=== PATIENT | male | born 1975 | race Caucasian/White ===

== ENCOUNTER 2017-06-15 12:25 | Inpatient (IN) | payer MEDICARE, MEDICAID ==
[~2017-06-15] VITALS: Ht 188 cm; Wt 190.2 kg
[~2017-06-15 12:25] MED LIST: ASPI-515 PO; FURO-93 PO; LISI-170 PO; METO25TA35 PO; OMEP-110 PO; OXYC-302 PO; OXYC-307 PO; POTA99TA24 PO; RIVA20TA PO
[2017-06-15 13:11] LABS: HEMOGLOBIN 13.5 g/dL (13.7-18.0); WHITE BLOOD COUNT 10.4 x10^3/uL (3.4-10)
[2017-06-15 13:25] LABS: ASPARTATE AMINO TRANSFERASE 24 U/L (15-37); BLOOD UREA NITROGEN 9 mg/dL (7-18)
[2017-06-15 13:27] LABS: ACETAMINOPHEN < 2 mcg/mL (10-30)
[2017-06-15] MEDS ORDERED: OXYcodone IR 5MG TABLET PO ONE (13:30)
[2017-06-15] MEDS ORDERED: ONDANSETRON ODT 8 MG PO ONE (13:30)
[2017-06-15] MEDS ORDERED: VENL150C PO (13:49)
[2017-06-15] MEDS ORDERED: WARF10TA PO (13:49)
[2017-06-15] MEDS ORDERED: ZOLP10TA PO (13:49)
[2017-06-15] MEDS ORDERED: ENOX100S5 SQ (13:49)
[2017-06-15] MEDS ORDERED: METH10TA4 PO (13:49)
[2017-06-15] MEDS ORDERED: RISP3TAB24 PO (13:49)
[2017-06-15] MEDS ORDERED: ONDANSETRON ODT 8 MG ONE (13:53)
[2017-06-15] MEDS ORDERED: OXYcodone IR 5MG TABLET ONE (13:53)
[2017-06-15 14:42] LABS: DAU SCREEN DISCLAIMER
[2017-06-15] MEDS ORDERED: KETOROLAC 30 MG/1 ML ONE (16:00)
[2017-06-15] MEDS ORDERED: KETOROLAC 30 MG/1 ML IM ONE (16:00)
[2017-06-15 17:52] VITALS: BP 128/100
[2017-06-15] MEDS: ENOXAPARIN 150 MG/ML SQ SCH (18:00)
[2017-06-15] MEDS ORDERED: ENOXAPARIN 40 MG/0.4 ML SQ SCH (18:00)
[2017-06-15] MEDS: ENOXAPARIN 40 MG/0.4 ML SQ SCH (18:29)
[2017-06-15] MEDS: OXYcodone/APAP 10/325MG TABLET PO PRN (18:29)
[2017-06-15] MEDS ORDERED: WARFARIN 10 MG TABLET PO-COUM ONE (18:30)
[2017-06-15] MEDS ORDERED: WARFARIN 3 MG TABLET PO-COUM ONE (18:30)
[2017-06-15] MEDS ORDERED: ZOLPIDEM 5MG TABLET ONE (20:03)
[2017-06-15] MEDS: ZOLPIDEM 10MG TABLET PO PRN (20:08)
[2017-06-15] MEDS: METOPROLOL TARTRATE 25 MG TABLET PO SCH (20:09)
[2017-06-15] MEDS ORDERED: METHYLPHENIDATE 10 MG TABLET PO SCH (21:00)
[2017-06-16] MEDS: OXYcodone/APAP 10/325MG TABLET PO PRN ×5 (01:01→22:16)
[2017-06-16 06:10] LABS: HEMATOCRIT 39.4 % (39.2-51.8); HEMOGLOBIN 12.9 g/dL (13.7-18.0); WHITE BLOOD COUNT 8.6 x10^3/uL (3.4-10)
[2017-06-16 06:16] LABS: ASPARTATE AMINO TRANSFERASE 18 U/L (15-37); BLOOD UREA NITROGEN 16 mg/dL (7-18)
[2017-06-16] MEDS: ENOXAPARIN 40 MG/0.4 ML SQ SCH ×2 (06:32→18:16)
[2017-06-16] MEDS: ENOXAPARIN 150 MG/ML SQ SCH ×2 (06:32→18:16)
[2017-06-16 07:20] VITALS: BP 121/86
[2017-06-16] MEDS: VENLAFAXINE 75 MG CAP ER PO SCH (08:24)
[2017-06-16] MEDS: METHYLPHENIDATE 10 MG TABLET PO SCH ×2 (08:26→11:54)
[2017-06-16] MEDS: LISINOPRIL 20 MG TABLET PO SCH (08:27)
[2017-06-16] MEDS: METOPROLOL TARTRATE 25 MG TABLET PO SCH ×2 (08:27→20:33)
[2017-06-16] MEDS: ASPIRIN 81 MG TABLET EC PO SCH (08:27)
[2017-06-16] MEDS: NICOTINE 14MG/24 HR PATCH.TD24 TD SCH (08:28)
[2017-06-16] MEDS: OMEPRAZOLE 20 MG CAPSULE.DR PO SCH (08:28)
[2017-06-16 13:56] VITALS: BP 94/65
[2017-06-16] MEDS: morphine SULFATE 10 MG/ML, 1ML IVPush PRN ×2 (14:57→20:33)
[2017-06-16] MEDS ORDERED: WARFARIN 5 MG TABLET PO-COUM ONE (18:00)
[2017-06-16 18:38] VITALS: BP 101/63
[2017-06-16] MEDS: ZOLPIDEM 10MG TABLET PO PRN (20:42)
[2017-06-16] MEDS ORDERED: OMNIPAQUE 350 MG/ML, 100ML BOTTLE ONE (21:09)
[2017-06-17] MEDS: morphine SULFATE 10 MG/ML, 1ML IVPush PRN ×4 (00:20→17:05)
[2017-06-17 00:50] VITALS: BP 96/62
[2017-06-17 05:15] LABS: HEMATOCRIT 36.2 % (39.2-51.8); HEMOGLOBIN 11.9 g/dL (13.7-18.0); WHITE BLOOD COUNT 7.4 x10^3/uL (3.4-10)
[2017-06-17] MEDS: ENOXAPARIN 40 MG/0.4 ML SQ SCH ×2 (05:30→17:04)
[2017-06-17] MEDS: ENOXAPARIN 150 MG/ML SQ SCH ×2 (05:30→17:04)
[2017-06-17 05:31] LABS: BLOOD UREA NITROGEN 15 mg/dL (7-18)
[2017-06-17 06:47] VITALS: BP 124/88
[2017-06-17] MEDS: OXYcodone/APAP 10/325MG TABLET PO PRN ×3 (08:11→18:21)
[2017-06-17] MEDS: NICOTINE 14MG/24 HR PATCH.TD24 TD SCH (08:11)
[2017-06-17] MEDS: OMEPRAZOLE 20 MG CAPSULE.DR PO SCH (08:11)
[2017-06-17] MEDS: METOPROLOL TARTRATE 25 MG TABLET PO SCH ×2 (08:11→20:06)
[2017-06-17] MEDS: ASPIRIN 81 MG TABLET EC PO SCH (08:12)
[2017-06-17] MEDS: VENLAFAXINE 75 MG CAP ER PO SCH (08:12)
[2017-06-17] MEDS: LISINOPRIL 20 MG TABLET PO SCH (08:14)
[2017-06-17] MEDS: METHYLPHENIDATE 10 MG TABLET PO SCH ×2 (08:20→12:21)
[2017-06-17 12:51] VITALS: BP 121/82
[2017-06-17 17:34] VITALS: BP 151/97
[2017-06-17] MEDS ORDERED: WARFARIN 7.5 MG TABLET PO-COUM ONE (18:00)
[2017-06-17] MEDS ORDERED: ZOLPIDEM 5MG TABLET ONE (19:39)
[2017-06-17 20:04] VITALS: BP 114/83
[2017-06-17] MEDS: ZOLPIDEM 10MG TABLET PO PRN (20:06)
[2017-06-18] MEDS: OXYcodone/APAP 10/325MG TABLET PO PRN ×4 (00:03→17:23)
[2017-06-18 04:56] VITALS: BP 110/69
[2017-06-18] MEDS: ENOXAPARIN 150 MG/ML SQ SCH ×2 (06:10→18:23)
[2017-06-18] MEDS: ENOXAPARIN 40 MG/0.4 ML SQ SCH ×2 (06:10→18:24)
[2017-06-18 08:17] VITALS: BP 136/86
[2017-06-18] MEDS: VENLAFAXINE 75 MG CAP ER PO SCH (08:28)
[2017-06-18] MEDS: ASPIRIN 81 MG TABLET EC PO SCH (08:28)
[2017-06-18] MEDS: LISINOPRIL 20 MG TABLET PO SCH (08:29)
[2017-06-18] MEDS: OMEPRAZOLE 20 MG CAPSULE.DR PO SCH (08:29)
[2017-06-18] MEDS: METOPROLOL TARTRATE 25 MG TABLET PO SCH ×2 (08:30→20:14)
[2017-06-18] MEDS: NICOTINE 14MG/24 HR PATCH.TD24 TD SCH (08:30)
[2017-06-18] MEDS: METHYLPHENIDATE 10 MG TABLET PO SCH ×2 (09:11→12:00)
[2017-06-18] MEDS ORDERED: hydrOXyzine 50MG TABLET PO PRN (11:30)
[2017-06-18] MEDS ORDERED: WARFARIN 10 MG TABLET PO-COUM ONE (18:00)
[2017-06-18 19:58] VITALS: BP 137/83
[2017-06-18] MEDS ORDERED: ZOLPIDEM 5MG TABLET ONE (20:11)
[2017-06-18] MEDS: ZOLPIDEM 10MG TABLET PO PRN (20:15)
[2017-06-19] MEDS: OXYcodone/APAP 10/325MG TABLET PO PRN ×4 (05:46→21:04)
[2017-06-19] MEDS: ENOXAPARIN 40 MG/0.4 ML SQ SCH ×2 (06:21→18:19)
[2017-06-19] MEDS: ENOXAPARIN 150 MG/ML SQ SCH ×2 (06:21→18:20)
[2017-06-19] MEDS: METHYLPHENIDATE 10 MG TABLET PO SCH ×2 (08:00→12:00)
[2017-06-19 08:19] VITALS: BP 122/94
[2017-06-19] MEDS: NICOTINE 14MG/24 HR PATCH.TD24 TD SCH (08:51)
[2017-06-19] MEDS: ASPIRIN 81 MG TABLET EC PO SCH (08:52)
[2017-06-19] MEDS: METOPROLOL TARTRATE 25 MG TABLET PO SCH ×2 (08:52→20:57)
[2017-06-19] MEDS: VENLAFAXINE 75 MG CAP ER PO SCH (08:52)
[2017-06-19] MEDS: OMEPRAZOLE 20 MG CAPSULE.DR PO SCH (08:52)
[2017-06-19] MEDS: LISINOPRIL 20 MG TABLET PO SCH (08:53)
[2017-06-19] MEDS ORDERED: WARFARIN 10 MG TABLET PO-COUM ONE (18:00)
[2017-06-19 19:46] VITALS: BP 162/101
[2017-06-19] MEDS ORDERED: ZOLPIDEM 5MG TABLET ONE (20:55)
[2017-06-19] MEDS: ZOLPIDEM 10MG TABLET PO PRN (21:03)
[2017-06-20] MEDS: ENOXAPARIN 150 MG/ML SQ SCH ×3 (05:53→06:04)
[2017-06-20] MEDS: ENOXAPARIN 40 MG/0.4 ML SQ SCH ×2 (05:53→06:05)
[2017-06-20] MEDS: OMEPRAZOLE 20 MG CAPSULE.DR PO SCH (07:55)
[2017-06-20] MEDS: LISINOPRIL 20 MG TABLET PO SCH (07:55)
[2017-06-20] MEDS: METHYLPHENIDATE 10 MG TABLET PO SCH ×2 (07:55→13:18)
[2017-06-20] MEDS: VENLAFAXINE 75 MG CAP ER PO SCH (07:56)
[2017-06-20] MEDS: ASPIRIN 81 MG TABLET EC PO SCH (07:56)
[2017-06-20] MEDS: NICOTINE 14MG/24 HR PATCH.TD24 TD SCH (07:56)
[2017-06-20] MEDS: METOPROLOL TARTRATE 25 MG TABLET PO SCH (07:56)
[2017-06-20 08:00] VITALS: BP 146/79
[2017-06-20] MEDS: OXYcodone/APAP 10/325MG TABLET PO PRN (08:58)
[2017-06-20] MEDS ORDERED: WARFARIN 10 MG TABLET PO-COUM SCH (18:00)
[2017-06-21] MEDS ORDERED: ENOXAPARIN 40 MG/0.4 ML SQ SCH (08:30)
== END 2017-06-20 13:21 | disposition home health service (06) | DRG 885 ==
LOC: ED 13:03 → INTOOBSV 15:45 → EDIP 15:45 → 3E 17:43 → 4NOR 06-16 12:16 → OBSVTOIN 06-16 14:25 → 3E 06-17 17:28
PROVIDERS: ADMIT Hospitalist; ATTEND Hospitalist
DX: F31.9 Bipolar disorder, unspecified (principal); R45.851 Suicidal ideations; I11.0 Hypertensive heart disease with heart failure; E66.01 Morbid (severe) obesity due to excess calories; E11.9 Type 2 diabetes mellitus without complications; I50.42 Chronic combined systolic (congestive) and diastolic (congestive) heart failure; D64.9 Anemia, unspecified; E78.5 Hyperlipidemia, unspecified; Z68.43 Body mass index [BMI] 50.0-59.9, adult; Z95.1 Presence of aortocoronary bypass graft; R10.9 Unspecified abdominal pain; F43.10 Post-traumatic stress disorder, unspecified; G89.29 Other chronic pain; I25.10 Atherosclerotic heart disease of native coronary artery without angina pectoris; F17.210 Nicotine dependence, cigarettes, uncomplicated; R79.1 Abnormal coagulation profile; M54.9 Dorsalgia, unspecified; I25.5 Ischemic cardiomyopathy; J44.9 Chronic obstructive pulmonary disease, unspecified; K21.9 Gastro-esophageal reflux disease without esophagitis; Z83.3 Family history of diabetes mellitus; Z82.49 Family history of ischemic heart disease and other diseases of the circulatory system; Z87.11 Personal history of peptic ulcer disease; Z91.19 Patient's noncompliance with other medical treatment and regimen; Z86.711 Personal history of pulmonary embolism; I25.2 Old myocardial infarction; Z95.5 Presence of coronary angioplasty implant and graft; Z95.810 Presence of automatic (implantable) cardiac defibrillator
CPT/HCPCS: 36415; 74177; 80048; 80053; 80307; 80329; 81003; 82040; 83735; 85025; 85379; 85610; 85730; 93970; G0378; J1650; J1885; Q0162; Q9967; G0479; G0480; J2270

== ENCOUNTER 2017-06-26 11:49 | Observation (INO) | payer MEDICARE, MEDICAID ==
[~2017-06-26] VITALS: Ht 188 cm; Wt 190.0 kg
[~2017-06-26 11:49] MED LIST changes: +ENOX100S5 SQ; +METH10TA4 PO; +RISP3TAB24 PO; +VENL150C PO; +WARF10TA PO; +ZOLP10TA PO
[2017-06-26] MEDS ORDERED: ASPIRIN 81 MG TABLET CHEW PO ONE (13:00)
[2017-06-26 13:15] LABS: BASOPHILS # (AUTO) 0.04 x10^3/uL (0-0.1); BASOPHILS % (AUTO) 0 % (0-1); EOSINOPHILS # (AUTO) 0.06 x10^3/uL (0-0.4); EOSINOPHILS % (AUTO) 1 % (1-7); LYMPHOCYTES % (AUTO) 15 % (22-44); MD NO; MEAN CORPUSCULAR HGB CONC 33.3 g/dL (33.2-36.2); MEAN CORPUSCULAR VOLUME 87.2 fL (81-97); MEAN PLATELET VOLUME 8.3 fL (7.4-10.4); MONOCYTES % (AUTO) 8 % (2-9); NEUTROPHILS % (AUTO) 76 % (42-75); PLATELET COUNT 249 x10^3/uL (130-400); RED BLOOD COUNT 4.66 x10^6/uL (4.38-5.82); RED CELL DISTRIBUTION WIDTH 16.1 % (9.4-14.8)
[2017-06-26] MEDS ORDERED: ONDANSETRON 2MG/ML, 2ML ONE (13:22)
[2017-06-26] MEDS ORDERED: MORPHINE SULFATE 4 MG/ML, 1ML ONE (13:22)
[2017-06-26 13:26] LABS: ALANINE AMINOTRANSFERASE 30 U/L (12-78); ALBUMIN 3.2 g/dL (3.4-5.0); ANION GAP 7 mmol/L (5-15); CALCIUM 8.3 mg/dL (8.5-10.1); CHLORIDE 106 mmol/L (98-107)
[2017-06-26] MEDS ORDERED: ASPIRIN 81 MG TABLET CHEW ONE (13:29)
[2017-06-26] MEDS ORDERED: ONDANSETRON 2MG/ML, 2ML IVPush ONE (13:30)
[2017-06-26] MEDS ORDERED: morphine SULFATE 10 MG/ML, 1ML IVPush ONE (13:30)
[2017-06-26 13:31] LABS: ALKALINE PHOSPHATASE 73 U/L (45-117); BILIRUBIN,TOTAL 0.4 mg/dL (0.2-1.0); CREATININE 0.96 mg/dL (0.7-1.3); D-DIMER 0.67 ug/mlFEU (0.00-0.52); INTERNATIONAL NORMALIZED RATIO 0.97 (0.93-1.1); TOTAL PROTEIN 7.1 g/dL (6.4-8.2); TROPONIN I < 0.015 ng/mL (0.000-0.045)
[2017-06-26 13:32] LABS: ACETAMINOPHEN < 2 mcg/mL (10-30); SALICYLATE LEVEL 2.9 mg/dL (2.8-20.0)
[2017-06-26] MEDS ORDERED: OMNIPAQUE 350 MG/ML, 100ML BOTTLE ONE (16:26)
[2017-06-26] MEDS ORDERED: ENOXAPARIN 100 MG/ML SQ ONE (18:00)
[2017-06-26] MEDS ORDERED: DOCUSATE 100 MG CAPSULE PO PRN (18:00)
[2017-06-26] MEDS ORDERED: ENOXAPARIN 100 MG/ML SQ SCH (18:00)
[2017-06-26] MEDS ORDERED: BISACODYL 10 MG SUPP PR PRN (18:00)
[2017-06-26] MEDS ORDERED: ACETAMINOPHEN 325 MG TABLET PO PRN (18:00)
[2017-06-26] MEDS ORDERED: ONDANSETRON ODT 4 MG PO PRN (18:00)
[2017-06-26] MEDS ORDERED: POLYETHYLENE GLYCOL 17 GM PACKET PO PRN (18:00)
[2017-06-26 18:08] LABS: MICROSCOPIC NOT IND
[2017-06-26 18:09] LABS: CULTURE INDICATED? NO
[2017-06-26 18:20] LABS: AMPHETAMINE SCREEN, URINE Negative (Negative); BARBITURATE SCREEN, URINE Negative (Negative); BENZODIAZEPINE SCREEN, URINE Negative (Negative); CANNABINOID SCREEN, URINE Negative (Negative); COCAINE SCREEN, URINE Negative (Negative); METHADONE SCREEN, URINE Negative (Negative); OPIATE SCREEN, URINE Positive (Negative)
[2017-06-26 20:21] VITALS: BP 148/82
[2017-06-26] MEDS: ENOXAPARIN 150 MG/ML SQ SCH (20:39)
[2017-06-26] MEDS: ENOXAPARIN 40 MG/0.4 ML SQ SCH (20:39)
[2017-06-26] MEDS: METOPROLOL TARTRATE 25 MG TABLET PO SCH (20:41)
[2017-06-26] MEDS ORDERED: WARFARIN 10 MG TABLET PO-COUM ONE (21:00)
[2017-06-26] MEDS ORDERED: RISPERIDONE 1 MG TABLET PO SCH (21:00)
[2017-06-27] MEDS ORDERED: METHYLPHENIDATE 10 MG TABLET PO SCH (08:00)
[2017-06-27] MEDS: VENLAFAXINE 75 MG CAP ER PO SCH ×2 (08:13→09:27)
[2017-06-27] MEDS: ASPIRIN 81 MG TABLET EC PO SCH (08:13)
[2017-06-27] MEDS: LISINOPRIL 10 MG TABLET PO SCH ×2 (08:14→09:28)
[2017-06-27] MEDS: FUROSEMIDE 20 MG TABLET PO SCH ×2 (08:14→09:28)
[2017-06-27] MEDS: ENOXAPARIN 40 MG/0.4 ML SQ SCH ×2 (08:14→21:24)
[2017-06-27] MEDS: METOPROLOL TARTRATE 25 MG TABLET PO SCH ×2 (08:14→09:27)
[2017-06-27] MEDS: ENOXAPARIN 150 MG/ML SQ SCH ×2 (08:14→21:24)
[2017-06-27] MEDS: WARFARIN HIGH DOSE PROTOCOL XX SCH (16:00)
[2017-06-27] MEDS: NICOTINE 21 MG/24 HR PATCH.TD24 TD SCH ×2 (17:16→17:18)
[2017-06-27] MEDS: OLANZAPINE 10 MG TABLET PO SCH (21:25)
[2017-06-27] MEDS: LORazepam 1MG TABLET PO PRN (21:40)
[2017-06-27 21:46] VITALS: BP 136/84
[2017-06-28] MEDS: ASPIRIN 81 MG TABLET EC PO SCH (08:31)
[2017-06-28] MEDS: SERTRALINE 50MG TABLET PO SCH (08:33)
[2017-06-28] MEDS: METOPROLOL TARTRATE 25 MG TABLET PO SCH ×2 (08:33→21:15)
[2017-06-28] MEDS: LISINOPRIL 10 MG TABLET PO SCH (08:33)
[2017-06-28] MEDS: FUROSEMIDE 20 MG TABLET PO SCH (08:33)
[2017-06-28 08:38] VITALS: BP 109/77
[2017-06-28 09:46] LABS: INTERNATIONAL NORMALIZED RATIO 1.01 (0.93-1.1); PROTHROMBIN TIME 10.4 Seconds (9.6-11.5)
[2017-06-28] MEDS: LORazepam 1MG TABLET PO PRN ×2 (10:13→21:15)
[2017-06-28] MEDS ORDERED: OXYcodone IR 5MG TABLET PO PRN (10:30)
[2017-06-28] MEDS: ENOXAPARIN 40 MG/0.4 ML SQ SCH ×2 (11:09→21:14)
[2017-06-28] MEDS: ENOXAPARIN 150 MG/ML SQ SCH ×2 (11:10→21:14)
[2017-06-28] MEDS: WARFARIN HIGH DOSE PROTOCOL XX SCH (12:00)
[2017-06-28] MEDS: OXYcodone IR 5MG TABLET PO PRN ×3 (14:06→21:15)
[2017-06-28] MEDS: NICOTINE 21 MG/24 HR PATCH.TD24 TD SCH (17:35)
[2017-06-28] MEDS ORDERED: WARFARIN 10 MG TABLET PO-COUM ONE (18:00)
[2017-06-28 20:00] VITALS: BP 120/83
[2017-06-28] MEDS: OLANZAPINE 10 MG TABLET PO SCH (21:15)
[2017-06-29] MEDS: OXYcodone IR 5MG TABLET PO PRN ×5 (01:52→19:48)
[2017-06-29] MEDS: LORazepam 1MG TABLET PO PRN ×3 (03:09→21:35)
[2017-06-29 05:48] LABS: PROTHROMBIN TIME 10.3 Seconds (9.6-11.5)
[2017-06-29 07:26] VITALS: BP 136/86
[2017-06-29] MEDS: ASPIRIN 81 MG TABLET EC PO SCH ×2 (07:30→07:39)
[2017-06-29] MEDS: FUROSEMIDE 20 MG TABLET PO SCH (07:31)
[2017-06-29] MEDS: LISINOPRIL 10 MG TABLET PO SCH (07:31)
[2017-06-29] MEDS: ENOXAPARIN 40 MG/0.4 ML SQ SCH ×2 (07:32→20:50)
[2017-06-29] MEDS: ENOXAPARIN 150 MG/ML SQ SCH ×2 (07:32→20:50)
[2017-06-29] MEDS: SERTRALINE 50MG TABLET PO SCH (07:32)
[2017-06-29] MEDS: METOPROLOL TARTRATE 25 MG TABLET PO SCH ×2 (07:32→20:51)
[2017-06-29] MEDS: WARFARIN HIGH DOSE PROTOCOL XX SCH (12:00)
[2017-06-29] MEDS: NICOTINE 21 MG/24 HR PATCH.TD24 TD SCH (17:38)
[2017-06-29] MEDS ORDERED: WARFARIN 10 MG TABLET PO-COUM ONE (18:00)
[2017-06-29 19:25] VITALS: BP 106/67
[2017-06-29] MEDS: OLANZAPINE 10 MG TABLET PO SCH (20:50)
[2017-06-30] MEDS: OXYcodone IR 5MG TABLET PO PRN ×6 (02:02→19:44)
[2017-06-30 08:11] VITALS: BP 124/86
[2017-06-30 08:56] LABS: INTERNATIONAL NORMALIZED RATIO 1.22 (0.93-1.1); PROTHROMBIN TIME 12.5 Seconds (9.6-11.5)
[2017-06-30] MEDS: ASPIRIN 81 MG TABLET EC PO SCH (09:00)
[2017-06-30] MEDS: FUROSEMIDE 20 MG TABLET PO SCH (09:07)
[2017-06-30] MEDS: LISINOPRIL 10 MG TABLET PO SCH (09:08)
[2017-06-30] MEDS: SERTRALINE 50MG TABLET PO SCH (09:08)
[2017-06-30] MEDS: METOPROLOL TARTRATE 25 MG TABLET PO SCH ×2 (09:08→20:09)
[2017-06-30] MEDS: ENOXAPARIN 40 MG/0.4 ML SQ SCH ×2 (09:09→20:09)
[2017-06-30] MEDS: ENOXAPARIN 150 MG/ML SQ SCH ×2 (09:10→20:09)
[2017-06-30] MEDS: WARFARIN HIGH DOSE PROTOCOL XX SCH (11:15)
[2017-06-30 13:10] VITALS: BP 107/73
[2017-06-30] MEDS: NITROGLYCERIN 0.4 MG BOTTLE (25 TABS) SL PRN ×3 (13:15→13:34)
[2017-06-30 13:19] VITALS: BP 96/66
[2017-06-30 13:28] VITALS: BP 100/59
[2017-06-30] MEDS: LORazepam 1MG TABLET PO PRN ×2 (13:49→20:09)
[2017-06-30 13:53] VITALS: BP 98/93
[2017-06-30 14:37] LABS: TROPONIN I < 0.015 ng/mL (0.000-0.045)
[2017-06-30] MEDS: NICOTINE 21 MG/24 HR PATCH.TD24 TD SCH (18:00)
[2017-06-30] MEDS ORDERED: WARFARIN 10 MG TABLET PO-COUM ONE (18:00)
[2017-06-30 19:53] LABS: TROPONIN I < 0.015 ng/mL (0.000-0.045)
[2017-06-30] MEDS: OLANZAPINE 10 MG TABLET PO SCH (20:10)
[2017-06-30 20:11] VITALS: BP 109/71
[2017-07-01] MEDS: OXYcodone IR 5MG TABLET PO PRN ×8 (00:03→21:49)
[2017-07-01 05:40] LABS: INTERNATIONAL NORMALIZED RATIO 1.33 (0.93-1.1); PROTHROMBIN TIME 13.6 Seconds (9.6-11.5)
[2017-07-01] MEDS: ENOXAPARIN 40 MG/0.4 ML SQ SCH ×2 (07:58→20:16)
[2017-07-01] MEDS: ENOXAPARIN 150 MG/ML SQ SCH ×2 (07:59→20:16)
[2017-07-01 08:00] VITALS: BP 131/83
[2017-07-01] MEDS: LISINOPRIL 10 MG TABLET PO SCH (08:01)
[2017-07-01] MEDS: SERTRALINE 50MG TABLET PO SCH (08:01)
[2017-07-01] MEDS: LORazepam 1MG TABLET PO PRN ×2 (08:01→19:03)
[2017-07-01] MEDS: METOPROLOL TARTRATE 25 MG TABLET PO SCH ×2 (08:01→20:15)
[2017-07-01] MEDS: ASPIRIN 81 MG TABLET EC PO SCH (09:00)
[2017-07-01] MEDS: FUROSEMIDE 20 MG TABLET PO SCH (09:00)
[2017-07-01] MEDS ORDERED: BISACODYL 10 MG SUPP PR PRN (14:00)
[2017-07-01] MEDS ORDERED: ACETAMINOPHEN 325 MG TABLET PO PRN (14:00)
[2017-07-01] MEDS ORDERED: ONDANSETRON ODT 4 MG PO PRN (14:00)
[2017-07-01] MEDS ORDERED: POLYETHYLENE GLYCOL 17 GM PACKET PO PRN (14:00)
[2017-07-01] MEDS ORDERED: DOCUSATE 100 MG CAPSULE PO PRN (14:00)
[2017-07-01] MEDS: NICOTINE 21 MG/24 HR PATCH.TD24 TD SCH (16:18)
[2017-07-01] MEDS ORDERED: WARFARIN 10 MG TABLET PO-COUM ONE (18:00)
[2017-07-01] MEDS: WARFARIN HIGH DOSE PROTOCOL XX SCH (18:00)
[2017-07-01] MEDS ORDERED: WARFARIN 1 MG TABLET PO-COUM ONE (18:00)
[2017-07-01] MEDS: OLANZAPINE 10 MG TABLET PO SCH (20:16)
[2017-07-01 20:19] VITALS: BP 99/61
[2017-07-01] MEDS ORDERED: WARFARIN 5 MG TABLET PO-COUM ONE (21:30)
[2017-07-02] MEDS: LORazepam 1MG TABLET PO PRN ×3 (00:10→18:28)
[2017-07-02] MEDS: OXYcodone IR 5MG TABLET PO PRN ×4 (01:54→16:44)
[2017-07-02 08:08] VITALS: BP 131/90
[2017-07-02] MEDS: FUROSEMIDE 20 MG TABLET PO SCH (08:24)
[2017-07-02] MEDS: LISINOPRIL 10 MG TABLET PO SCH (08:25)
[2017-07-02] MEDS: SERTRALINE 50MG TABLET PO SCH (08:26)
[2017-07-02] MEDS: METOPROLOL TARTRATE 25 MG TABLET PO SCH ×2 (08:26→20:17)
[2017-07-02] MEDS: ENOXAPARIN 40 MG/0.4 ML SQ SCH ×2 (08:28→20:17)
[2017-07-02] MEDS: ENOXAPARIN 150 MG/ML SQ SCH ×2 (08:29→20:17)
[2017-07-02] MEDS: ASPIRIN 81 MG TABLET EC PO SCH (08:32)
[2017-07-02 08:37] LABS: INTERNATIONAL NORMALIZED RATIO 1.56 (0.93-1.1); PROTHROMBIN TIME 15.9 Seconds (9.6-11.5)
[2017-07-02] MEDS: WARFARIN HIGH DOSE PROTOCOL XX SCH (12:00)
[2017-07-02] MEDS: NICOTINE 21 MG/24 HR PATCH.TD24 TD SCH (14:13)
[2017-07-02] MEDS ORDERED: WARFARIN 7.5 MG TABLET PO-COUM ONE (18:00)
[2017-07-02 19:28] VITALS: BP 128/83
[2017-07-02] MEDS: OLANZAPINE 10 MG TABLET PO SCH (20:17)
[2017-07-03] MEDS: OXYcodone IR 5MG TABLET PO PRN ×5 (01:53→20:40)
[2017-07-03] MEDS: LORazepam 1MG TABLET PO PRN ×3 (03:53→20:39)
[2017-07-03] MEDS: ENOXAPARIN 40 MG/0.4 ML SQ SCH (08:33)
[2017-07-03] MEDS: ENOXAPARIN 150 MG/ML SQ SCH (08:34)
[2017-07-03] MEDS: FUROSEMIDE 20 MG TABLET PO SCH (08:34)
[2017-07-03] MEDS: ASPIRIN 81 MG TABLET EC PO SCH (08:34)
[2017-07-03] MEDS: METOPROLOL TARTRATE 25 MG TABLET PO SCH ×2 (08:34→20:39)
[2017-07-03] MEDS: SERTRALINE 50MG TABLET PO SCH (08:34)
[2017-07-03] MEDS: LISINOPRIL 10 MG TABLET PO SCH (08:35)
[2017-07-03 08:51] VITALS: BP 107/72
[2017-07-03] MEDS: WARFARIN HIGH DOSE PROTOCOL XX SCH (12:00)
[2017-07-03 12:24] LABS: INTERNATIONAL NORMALIZED RATIO 3.19 (0.93-1.1); PROTHROMBIN TIME 32.1 Seconds (9.6-11.5)
[2017-07-03 12:29] LABS: ANION GAP 7 mmol/L (5-15); CALCIUM 8.5 mg/dL (8.5-10.1); CHLORIDE 105 mmol/L (98-107); CREATININE 0.91 mg/dL (0.7-1.3)
[2017-07-03] MEDS: NICOTINE 21 MG/24 HR PATCH.TD24 TD SCH (14:10)
[2017-07-03 20:30] VITALS: BP 121/83
[2017-07-03] MEDS: OLANZAPINE 10 MG TABLET PO SCH (20:39)
[2017-07-03] MEDS ORDERED: PRAZOSIN 1 MG CAPSULE PO SCH (21:00)
[2017-07-03 23:24] VITALS: BP 110/69
[2017-07-03] MEDS ORDERED: NITROGLYCERIN SINGLE TAB 0.4 MG SL ONE (23:30)
[2017-07-03] MEDS: NITROGLYCERIN 0.4 MG BOTTLE (25 TABS) SL PRN ×4 (23:41→23:57)
[2017-07-03 23:59] VITALS: BP 92/56
[2017-07-04 00:04] LABS: TROPONIN I < 0.015 ng/mL (0.000-0.045)
[2017-07-04] MEDS: OXYcodone IR 5MG TABLET PO PRN ×5 (00:21→19:30)
[2017-07-04] MEDS: LORazepam 1MG TABLET PO PRN ×3 (02:46→22:52)
[2017-07-04 08:00] VITALS: BP 138/84
[2017-07-04 08:33] LABS: INTERNATIONAL NORMALIZED RATIO 2.11 (0.93-1.1); PROTHROMBIN TIME 21.4 Seconds (9.6-11.5)
[2017-07-04] MEDS: LISINOPRIL 10 MG TABLET PO SCH (08:39)
[2017-07-04] MEDS: METOPROLOL TARTRATE 25 MG TABLET PO SCH ×2 (08:40→19:29)
[2017-07-04] MEDS: FUROSEMIDE 20 MG TABLET PO SCH (08:40)
[2017-07-04] MEDS: ASPIRIN 81 MG TABLET EC PO SCH (08:40)
[2017-07-04] MEDS: SERTRALINE 50MG TABLET PO SCH (08:40)
[2017-07-04 08:42] LABS: TROPONIN I < 0.015 ng/mL (0.000-0.045)
[2017-07-04] MEDS: WARFARIN HIGH DOSE PROTOCOL XX SCH (11:32)
[2017-07-04] MEDS: NICOTINE 21 MG/24 HR PATCH.TD24 TD SCH (14:19)
[2017-07-04] MEDS ORDERED: WARFARIN 7.5 MG TABLET PO-COUM ONE (18:00)
[2017-07-04] MEDS ORDERED: PRAZOSIN 1 MG CAPSULE ONE (19:26)
[2017-07-04] MEDS: PRAZOSIN 1 MG CAPSULE PO SCH (19:29)
[2017-07-04] MEDS: OLANZAPINE 10 MG TABLET PO SCH (19:30)
[2017-07-04 19:35] VITALS: BP 123/84
[2017-07-05] MEDS: OXYcodone IR 5MG TABLET PO PRN ×5 (03:36→23:22)
[2017-07-05 07:30] VITALS: BP 153/98
[2017-07-05] MEDS: FUROSEMIDE 20 MG TABLET PO SCH (09:09)
[2017-07-05] MEDS: SERTRALINE 50MG TABLET PO SCH (09:09)
[2017-07-05] MEDS: LISINOPRIL 10 MG TABLET PO SCH (09:10)
[2017-07-05] MEDS: ASPIRIN 81 MG TABLET EC PO SCH (09:10)
[2017-07-05] MEDS: METOPROLOL TARTRATE 25 MG TABLET PO SCH ×2 (09:10→21:14)
[2017-07-05] MEDS: WARFARIN HIGH DOSE PROTOCOL XX SCH (12:00)
[2017-07-05 12:33] LABS: INTERNATIONAL NORMALIZED RATIO 1.57 (0.93-1.1)
[2017-07-05] MEDS: LORazepam 1MG TABLET PO PRN ×3 (13:00→21:15)
[2017-07-05] MEDS: NICOTINE 21 MG/24 HR PATCH.TD24 TD SCH (14:38)
[2017-07-05] MEDS ORDERED: WARFARIN 2.5 MG TABLET PO-COUM ONE (18:00)
[2017-07-05] MEDS ORDERED: WARFARIN 10 MG TABLET PO-COUM ONE (18:00)
[2017-07-05 19:22] VITALS: BP 107/54
[2017-07-05] MEDS: PRAZOSIN 1 MG CAPSULE PO SCH (21:15)
[2017-07-05] MEDS: OLANZAPINE 10 MG TABLET PO SCH (21:15)
[2017-07-06] MEDS: OXYcodone IR 5MG TABLET PO PRN ×4 (05:54→20:44)
[2017-07-06 05:56] VITALS: BP 111/73
[2017-07-06 07:52] VITALS: BP 157/84
[2017-07-06] MEDS: FUROSEMIDE 20 MG TABLET PO SCH (08:20)
[2017-07-06] MEDS: METOPROLOL TARTRATE 25 MG TABLET PO SCH ×2 (08:20→21:53)
[2017-07-06] MEDS: LISINOPRIL 10 MG TABLET PO SCH (08:20)
[2017-07-06] MEDS: SERTRALINE 50MG TABLET PO SCH (08:21)
[2017-07-06] MEDS: ASPIRIN 81 MG TABLET EC PO SCH (08:23)
[2017-07-06 09:36] LABS: INTERNATIONAL NORMALIZED RATIO 1.71 (0.93-1.1); PROTHROMBIN TIME 17.4 Seconds (9.6-11.5)
[2017-07-06] MEDS: LORazepam 1MG TABLET PO PRN ×2 (13:16→22:33)
[2017-07-06] MEDS ORDERED: NICOTINE 21 MG/24 HR PATCH.TD24 TD SCH (13:30)
[2017-07-06] MEDS ORDERED: WARFARIN 10 MG TABLET PO-COUM SCH (18:00)
[2017-07-06 21:51] VITALS: BP 129/77
[2017-07-06] MEDS: PRAZOSIN 1 MG CAPSULE PO SCH (21:53)
[2017-07-06] MEDS: OLANZAPINE 10 MG TABLET PO SCH (21:53)
== END 2017-07-07 00:34 ==
LOC: ED 15:01 → EDIP 17:50 → 2N 20:13
PROVIDERS: ADMIT Internal Medicine; ATTEND Internal Medicine
DX: R45.851 Suicidal ideations (principal); F33.2 Major depressive disorder, recurrent severe without psychotic features; D72.829 Elevated white blood cell count, unspecified; I25.5 Ischemic cardiomyopathy; I25.10 Atherosclerotic heart disease of native coronary artery without angina pectoris; J44.9 Chronic obstructive pulmonary disease, unspecified; I11.0 Hypertensive heart disease with heart failure; E44.0 Moderate protein-calorie malnutrition; E11.9 Type 2 diabetes mellitus without complications; E78.5 Hyperlipidemia, unspecified; G47.33 Obstructive sleep apnea (adult) (pediatric); I50.42 Chronic combined systolic (congestive) and diastolic (congestive) heart failure; Z82.3 Family history of stroke; Z82.49 Family history of ischemic heart disease and other diseases of the circulatory system; Z86.711 Personal history of pulmonary embolism; Z95.5 Presence of coronary angioplasty implant and graft; Z83.3 Family history of diabetes mellitus; Z87.11 Personal history of peptic ulcer disease; F17.200 Nicotine dependence, unspecified, uncomplicated
CPT/HCPCS: 36415; 71010; 71275; 73130; 80048; 80053; 80307; 80329; 81003; 83880; 84484; 85025; 85379; 85610; 93005; 96372; 96374; 96375; 99285; G0378; J1650; J2270; J2405; Q9967; G0479; G0480